=== PATIENT | female | born 1965 | race Caucasian/White ===

== ENCOUNTER → 2024-12-12 12:29 | Outpatient (REF) | payer SELFPAY | LOC: HWRAD 12:29 | DX: E78.5 Hyperlipidemia, unspecified (principal) | CPT/HCPCS: 75571 ==

== ENCOUNTER → 2024-12-12 12:41 | Outpatient (REF) | payer BC, SELFPAY | LOC: HWRAD 12:41 | DX: M51.360 Other intervertebral disc degeneration, lumbar region with discogenic back pain only (principal); M25.50 Pain in unspecified joint | CPT/HCPCS: 72110; 73523 ==